=== PATIENT | female | born 1995 | race Caucasian/White ===

== ENCOUNTER 2019-02-17 22:58 | Emergency (ER) | payer OTHER ==
[~2019-02-17] VITALS: Ht 160 cm; Wt 80.1 kg
[2019-02-17 23:02] VITALS: BP 141/94
== END 2019-02-18 01:20 | disposition home or self-care (01) ==
LOC: ED 23:59
DX: R10.12 Left upper quadrant pain (principal)
CPT/HCPCS: 36415; 71045; 80053; 81001; 83690; 84703; 85025; 85379; 87077; 87086; 87186; 93005; 99284